=== PATIENT | male | born 1965 | race Caucasian/White ===

== ENCOUNTER 2020-07-19 09:26 | Emergency (ER) | payer BC ==
--- NOTE | 2020-07-19 11:30 | EDM.PDOC ---
ED HPI GENERAL MEDICAL PROBLEM - General Chief Complaint: Respiratory Problem Stated Complaint: R LEG PAIN/SOB Time Seen by Provider: 07/19/20 10:13 Source of Information: Reports: Patient, RN Notes Reviewed - History of Present Illness INITIAL COMMENTS - FREE TEXT/NARRATIVE: Pt has been having R lateral and post lat knee pain for several days, also some mild R medial thigh discomfort past couple of days. This morning at work he became short of breath. Has not been ill with cough, fever, chills or anything like that. Hx of DVT RUE some time ago. Not on anticoagulants at this time. Hx of RA. No recent injury. No hx of Htn, Diabetes or Htn. 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 Right Posterior Knee Pain Score (Numeric/FACES): 9 - Related Data Allergies Allergy/AdvReac Type Severity Reaction Status Date / Time codeine Allergy Nausea and Verified 07/19/20 10:20 Vomiting erythromycin base Allergy Nausea and Verified 07/19/20 10:20 Vomiting Home Meds: Home Meds clonazePAM [Klonopin] 1 mg PO DAILY PRN 07/19/20 [History] predniSONE [Prednisone] 50 mg PO DAILY #6 tablet 07/19/20 [Rx] Past Medical History - Past Health History Medical/Surgical History: Denies Medical/Surgical History Cardiovascular History: Reports: Blood Clots/VTE/DVT, Other (See Below) Other Cardiovascular History: Thoracic outlet sybdrome - Past Surgical History Neurological Surgical History: Reports: Other (See Below) Other Neurological Surgeries/Procedures: Thoracic outlet syndrome Social & Family History - Tobacco Use Tobacco Use Status *Q: Former Tobacco User Used Tobacco, but Quit: Yes Month/Year Tobacco Last Used: 08/1996 - Caffeine Use Caffeine Use: Reports: Coffee - Recreational Drug Use Recreational Drug Use: No ED ROS GENERAL - Review of Systems Review Of Systems: See Below Constitutional: Denies: Fever, Chills HEENT: Reports: No Symptoms Respiratory: Reports: Shortness of Breath (gone). Denies: Cough Cardiovascular: Denies: Chest Pain GI/Abdominal: Denies: Abdominal Pain, Nausea, Vomiting Musculoskeletal: Denies: Shoulder Pain, Arm Pain, Back Pain Skin: Reports: No Symptoms Neurological: Reports: Dizziness (gone) ED EXAM, GENERAL - Physical Exam Exam: See Below Exam Limited By: No Limitations General Appearance: Alert, No Apparent Distress Head: Atraumatic Neck: Supple, Other (no JVD) Respiratory/Chest: No Respiratory Distress, Lungs Clear, Normal Breath Sounds. No: Rhonchi, Wheezing Cardiovascular: Regular Rate, Rhythm Extremities: Normal Inspection, Other (very small effusion R lateral knee, tender R lateral knee at joint, post knee nontender, post calf nontender). No: Pedal Edema, Leg Pain, Increased Warmth, Redness Neurological: Alert, Oriented, No Motor/Sensory Deficits Course - Vital Signs Last Recorded V/S: Last Vital Signs Temp 98.5 F 07/19/20 10:08 Pulse 80 07/19/20 10:08 Resp 12 07/19/20 10:08 BP 149/99 H 07/19/20 10:08 Pulse Ox 96 07/19/20 10:08 - Orders/Labs/Meds Orders: Active Orders 24 hr Category Date Time Status Ang Chest [CT] Stat Exams 07/19/20 12:15 Taken VL Duplex Lwr Ext Veins Ltd Rt [US] Stat Exams 07/19/20 10:34 Taken Sodium Chloride 0.9% [Normal Saline] 1,000 ml Med 07/19/20 12:15 Active IV ONETIME Sodium Chloride 0.9% [Normal Saline] 100 ml Med 07/19/20 12:30 Active IV ASDIRECTED Sodium Chloride 0.9% [Saline Flush] Med 07/19/20 12:22 Active 10 ml FLUSH ONETIME PRN Medication Orders Sodium Chloride (Normal Saline) 1,000 mls @ 999 mls/hr IV ONETIME KISHAN Last Admin: 07/19/20 12:27 Dose: 999 mls/hr Documented by: ISABEL Sodium Chloride (Normal Saline) 100 mls @ 75 mls/hr IV ASDIRECTED KISHAN Last Admin: 07/19/20 13:08 Dose: 75 mls/hr Documented by: WILFRID Sodium Chloride (Saline Flush) 10 ml FLUSH ONETIME PRN PRN Reason: IV FLUSH Last Admin: 07/19/20 13:08 Dose: 10 ml Documented by: Admin: 07/19/20 12:27 Dose: 10 ml Documented by: ISABEL Labs: Laboratory Tests 07/19/20 07/19/20 07/19/20 Range/Units 11:10 11:10 11:10 WBC 5.82 (4.23-9.07) K/mm3 RBC 5.04 (4.63-6.08) M/mm3 Hgb 16.5 (13.7-17.5) gm/dl Hct 48.7 (40.1-51.0) % MCV 96.6 H (79.0-92.2) fl MCH 32.7 H (25.7-32.2) pg MCHC 33.9 (32.2-35.5) g/dl RDW Std Deviation 45.9 H (35.1-43.9) fL Plt Count 94 L (163-337) K/mm3 MPV 10.1 (9.4-12.3) fl Neut % (Auto) 46.8 (34.0-67.9) % Lymph % (Auto) 35.7 (21.8-53.1) % Linn % (Auto) 15.3 H (5.3-12.2) % Eos % (Auto) 1.9 (0.8-7.0) Baso % (Auto) 0.3 (0.1-1.2) % Neut # (Auto) 2.72 (1.78-5.38) K/mm3 Lymph # (Auto) 2.08 (1.32-3.57) K/mm3 Linn # (Auto) 0.89 H (0.30-0.82) K/mm3 Eos # (Auto) 0.11 (0.04-0.54) K/mm3 Baso # (Auto) 0.02 (0.01-0.08) K/mm3 Manual Slide Review Abnormal smear D-Dimer, Quantitative 1.13 H (0.19-0.50) mg/L Sodium 137 (136-145) mEq/L Potassium 4.0 (3.5-5.1) mEq/L Chloride 104 (98-107) mEq/L Carbon Dioxide 25 (21-32) mEq/L Anion Gap 12.0 (5-15) BUN 11 (7-18) mg/dL Creatinine 0.9 (0.7-1.3) mg/dL Est Cr Clr Drug Dosing 100.59 mL/min Estimated GFR (MDRD) > 60 (>60) mL/min BUN/Creatinine Ratio 12.2 L (14-18) Glucose 106 (74-106) mg/dL Calcium 9.0 (8.5-10.1) mg/dL Total Bilirubin 0.9 (0.2-1.0) mg/dL AST 50 H (15-37) U/L ALT 78 H (16-63) U/L Alkaline Phosphatase 71 (46-116) U/L Total Protein 7.2 (6.4-8.2) g/dl Albumin 3.4 (3.4-5.0) g/dl Globulin 3.8 gm/dL Albumin/Globulin Ratio 0.9 L (1-2) Meds: Medications Generic Name Dose Route Start Last Admin Trade Name Freq PRN Reason Stop Dose Admin Sodium Chloride 1,000 mls @ 999 mls/hr 07/19/20 12:15 07/19/20 12:27 Normal Saline IV 999 mls/hr ONETIME KISHAN Administration Sodium Chloride 100 mls @ 75 mls/hr 07/19/20 12:30 07/19/20 13:08 Normal Saline IV 75 mls/hr ASDIRECTED KISHAN Administration Sodium Chloride 10 ml 07/19/20 12:22 07/19/20 13:08 Saline Flush FLUSH 10 ml ONETIME PRN Administration IV FLUSH Discontinued Medications Generic Name Dose Route Start Last Admin Trade Name Freq PRN Reason Stop Dose Admin Iopamidol 100 ml 07/19/20 12:22 07/19/20 13:08 [id number] (76%) IVPUSH 07/19/20 12:23 100 ml ONETIME ONE Administration - Re-Assessments/Exams Free Text/Narrative Re-Assessment/Exam: 07/19/20 13:43 US RLE neg for DVT. D dimer elevated at 1.1. CTPA neg, see Radiology report for details. Departure - Departure Time of Disposition: 13:46 Disposition: Home, Self-Care 01 Condition: Fair Clinical Impression: Arthritis of knee, right Dyspnea Qualifiers: Dyspnea type: unspecified Qualified Code(s): R06.00 - Dyspnea, unspecified - Discharge Information Prescriptions: predniSONE [Prednisone] 50 mg PO DAILY #6 tablet Instructions: Shortness of Breath, Adult, [id number] Referrals: Christopher Belcher MD [Primary Care Provider] - Forms: ED Department Discharge Additional Instructions: Your US RLE, CT pul angiogram was nl today. Prednisone 50 mg daily has been sent electronically to [facility]. follow up clinic as needed, return to ED as needed if symptoms worsening in any way. Sepsis Event Note (ED) - Evaluation Sepsis Screening Result: No Definite Risk - Focused Exam Vital Signs: Vital Signs Temp Pulse Resp BP Pulse Ox 07/19/20 10:08 98.5 F 80 12 149/99 H 96 - My Orders Last 24 Hours: My Active Orders 07/19/20 10:34 VL Duplex Lwr Ext Veins Ltd Rt [US] Stat 07/19/20 12:15 Ang Chest [CT] Stat Sodium Chloride 0.9% [Normal Saline] 1,000 ml IV ONETIME 07/19/20 12:22 Sodium Chloride 0.9% [Saline Flush] 10 ml FLUSH ONETIME PRN 07/19/20 12:30 Sodium Chloride 0.9% [Normal Saline] 100 ml IV ASDIRECTED - Assessment/Plan Last 24 Hours: My Active Orders 07/19/20 10:34 VL Duplex Lwr Ext Veins Ltd Rt [US] Stat 07/19/20 12:15 Ang Chest [CT] Stat Sodium Chloride 0.9% [Normal Saline] 1,000 ml IV ONETIME 07/19/20 12:22 Sodium Chloride 0.9% [Saline Flush] 10 ml FLUSH ONETIME PRN 07/19/20 12:30 Sodium Chloride 0.9% [Normal Saline] 100 ml IV ASDIRECTED
[2020-07-19] MEDS ORDERED: Sodium Chloride 0.9% 1,000 ML IV SCH (12:15)
[2020-07-19] MEDS ORDERED: Iopamidol 755 Mg/ML 100 ML Bottle IVPUSH ONE (12:22)
[2020-07-19] MEDS: Sodium Chloride 0.9% 10 ML Syringe FLUSH PRN ×2 (12:27→13:08)
[2020-07-19] MEDS ORDERED: Sodium Chloride 0.9% 100 ML IV SCH (12:30)
--- NOTE | 2020-07-20 08:28 | CT ---
CT chest Technique: Multiple axial sections were obtained from above the lung apices inferiorly through the lung bases. Intravenous contrast was utilized. Study was performed as a pulmonary angiogram protocol. Reconstructed coronal and sagittal images were obtained. Comparison: No prior chest imaging is available. Findings: Pulmonary arteries: Pulmonary arteries are well opacified. No filling defects are seen to indicate pulmonary embolism. Mediastinum and heart: Thoracic aorta shows no aneurysm. Mediastinum and hilar regions show no adenopathy. No pericardial thickening is seen. Visualized upper abdominal: Fatty infiltration seen with liver. No other abnormality is appreciated Lungs: Lungs are clear with no acute parenchymal change. No pleural effusions are seen. Osseous: No acute osseous finding is appreciated. Impression: 1. No findings of pulmonary embolism. 2. Fatty infiltration within the liver. 3. Nothing acute is otherwise appreciated. 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
--- NOTE | 2020-07-20 08:34 | US ---
Right lower extremity deep venous ultrasound: Duplex and color Doppler evaluation was obtained of the right common femoral, proximal greater saphenous, superficial femoral, popliteal, posterior tibial and peroneal veins. Left common femoral vein was also evaluated. Findings: Right peroneal vein not well seen for compression but normal phasic flow and augmentation is seen. Other deep veins show normal compression, phasic flow and augmentation. Impression: 1. Nothing appreciated to indicate deep venous thrombosis within the right lower extremity or within the left common femoral vein. Diagnostic code #2 I agree with preliminary report from 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
== END 2020-07-19 13:55 | disposition home or self-care (01) ==
LOC: JD.ED 09:26
DX: M13.861 Other specified arthritis, right knee (principal); R06.00 Dyspnea, unspecified; R79.1 Abnormal coagulation profile; Z88.1 Allergy status to other antibiotic agents; Z88.5 Allergy status to narcotic agent; Z79.899 Other long term (current) drug therapy; Z87.891 Personal history of nicotine dependence
CPT/HCPCS: 36415; 71275; 71275-26; 80053; 85025; 85379; 93971-26-RT; 93971-RT; 99284; 99285-25; J7030; Q9967